=== PATIENT | male | born 1975 | race Caucasian/White ===

== ENCOUNTER 2016-10-02 07:27 | Inpatient (IN) | payer BC ==
[2016-10-02] VITALS (41 sets, daily range): BP systolic 125–271; BP diastolic 53–133; PULSE 62–114; RESP 5–43; TEMP 98.5–99.1; O2SAT 80–99
[~2016-10-02] VITALS: Ht 175.3 cm; Wt 114.4 kg
[~2016-10-02 07:27] MED LIST: ALPR0.5T3 PO; ASPI-110 PO; BACL10TA PO; BACT800T5 PO; CLON0.1T PO; FURO20TA PO; FURO40TA PO; HYDR50TA15 PO; LEVE500T8 PO; LEVEMIR SQ; METO5TAB3 PO; NOVOLOGSS SQ; ONDA4TAB6 PO; PANT40TA3 PO; ULTR50TA5 PO; ZOFR4TAB PO
--- NOTE | 2016-10-02 07:39 | PD ---
HPI Chief Complaint: Neuro Symptoms/ Deficits Time Seen by Provider: 07:32 Travel History International Travel<30 days: No Contact w/Intl Traveler<30days: No History of Present Illness HPI Patient is a 40-year-old male with history of chronic kidney disease diabetes presents to emergency department with left-sided facial tingling as well as left arm tingling. Patient states that he had the onset of the worst headache of his life last night and this morning he awoke with these numbness and tingling symptoms. Denies any focalized weakness denies any visual difficulty. He states this happened to him one time in the past and he was admitted to the hospital but with no definitive diagnosis. Notably hypertensive on arrival states he still hurting in his head. He's had an episode of nausea and nonbilious nonbloody emesis last night. No chest pain no shortness of breath. States symptoms are severe. PFSH Past Medical History Anemia: Yes Arthritis: No Asthma: No Autoimmune Disease: No Blood Disorders: No Anxiety: Yes Depression: Yes Heart Rhythm Problems: No Cancer: No Cardiac Catheterization: No Cardiovascular Problems: Yes High Cholesterol: No Chemotherapy: No Chest Pain: Yes Congestive Heart Failure: No Diabetes: Yes (INSULIN) Diminished Hearing: No Endocrine: Yes GERD: Yes Genitourinary: No Headaches: Yes Hypertension: Yes Implanted Vascular Access Dvce: No Musculoskeletal: No Neurologic: Yes (neuropathy) Psychiatric: No Reproductive: No Respiratory: No Immunizations Current: Yes Myocardial Infarction: No Pancreatitis: Yes Radiation Therapy: No Renal Failure: Yes Seizures: Yes (QUESTIONABLE ) Sickle Cell Disease: No Sleep Apnea: No Past Surgical History Abdominal Surgery: No AICD: No Appendectomy: Yes (2004) Cardiac Surgery: No Coronary Artery Bypass Graft: No Ear Surgery: No Endocrine Surgery: No Eye Surgery: Yes ( 2011 at [facility] right eye) Genitourinary Surgery: No Gynecologic Surgery: No Neurologic Surgery: No Oral Surgery: No Thoracic Surgery: No Tonsillectomy: Yes Other Surgery: Yes (TOSILECTOMY 1997) Social History Alcohol Use: No Tobacco Use: No (QUIT 2013- pack a week cigs) Substance Use: No Allergies-Medications (Allergen,Severity, Reaction): Coded Allergies: No Known Allergies (Verified , 10/02/16) Reported Meds & Prescriptions Reported Meds & Active Scripts Active Reported Hydralazine (Hydralazine HCl) 100 Mg Tab 50 Mg PO TID Take with meals Losartan (Losartan Potassium) 50 Mg Tab 50 Mg PO DAILY Levetiracetam 500 Mg Tab 1,000 Mg PO BID Baclofen 10 Mg Tab 10 Mg PO TID PRN Alprazolam 0.5 Mg Tab 0.5 Mg PO Q8H PRN Clonidine (Clonidine HCl) 0.1 Mg Tab 0.3 Mg PO BID Furosemide 40 Mg Tab 40 Mg PO DAILY Furosemide 20 Mg Tab 20 Mg PO HS Pantoprazole (Pantoprazole Sodium) 40 Mg Tab 40 Mg PO DAILY Ondansetron HCl 4 Mg Tab 4 Mg PO Q6HR PRN Metolazone 5 Mg Tab 5 Mg PO DAILY Levemir Inj (Insulin Detemir) 1,000 unit/ 10 ML Vial 90 Units SQ HS Do not mix with any other Insulin. Aspirin 81 (Aspirin) 81 Mg Tabdr 81 Mg PO DAILY Novolog Inj (Insulin Aspart) 100 Unit/Ml Inj 12 Units SQ HS Novolog Inj (Insulin Aspart) 100 Unit/Ml Inj 10 Units SQ DAILY AFTER MEALS Review of Systems Except as stated in HPI: all other systems reviewed are Neg Physical Exam Narrative GENERAL: Well-developed well-nourished no apparent distress SKIN: Focused skin assessment warm/dry. HEAD: Atraumatic. Normocephalic. EYES: Pupils equal and round and reactive to light. No scleral icterus. No injection or drainage. ENT: No nasal bleeding or discharge. Mucous membranes pink and moist. NECK: Trachea midline. No JVD. CARDIOVASCULAR: Regular rate and rhythm. No murmur appreciated. RESPIRATORY: No accessory muscle use. Clear to auscultation. Breath sounds equal bilaterally. GASTROINTESTINAL: Abdomen soft, non-tender, nondistended. Hepatic and splenic margins not palpable. MUSCULOSKELETAL: No obvious deformities. No clubbing. No cyanosis. No edema. NEUROLOGICAL: Awake alert and oriented, keenly responsive, cranial nerves II through XII are grossly intact and nonfocal, 5 out of 5 strength in all 4 extremity's, no pronator drift in upper tremors, no leg drift, cerebellar testing is negative. PSYCHIATRIC: Appropriate mood and affect; insight and judgment normal. Data Data Last Documented VS Vital Signs Date Time Temp Pulse Resp B/P Pulse Ox O2 Delivery O2 Flow Rate FiO2 10/02/16 08:33 68 16 234/121 98 Room Air 10/02/16 07:[address] Brain W/O Iv Contrast(Rout) (10/02/16 ) Ckmb (Isoenzyme) Profile (10/02/16 07:38) Complete Blood Count With Diff (10/02/16 07:38) Comprehensive Metabolic Panel (10/02/16 07:38) Magnesium (Mg) (10/02/16 07:38) Prothrombin Time / Inr (Pt) (10/02/16 07:38) Act Partial Throm Time (Ptt) (10/02/16 07:38) Troponin I (10/02/16 07:38) Chest, Single Ap (10/02/16 07:38) Ecg Monitoring (10/02/16 07:38) Iv Access Insert/Monitor (10/02/16 07:38) Oximetry (10/02/16 07:38) Oxygen Administration (10/02/16 07:38) Sodium Chloride 0.9% Flush (Ns Flush) (10/02/16 07:45) Diphenhydramine Inj (Benadryl Inj) (10/02/16 07:45) Prochlorperazine Inj (Compazine Inj) (10/02/16 07:45) CKMB (10/02/16 07:45) CKMB% (10/02/16 07:45) Electrocardiogram (10/02/16 ) Nicardipine Inj (Cardene Inj) (10/02/16 08:45) Admit Order (Ed Use Only) (10/02/16 ) Labs Laboratory Tests Test 10/02/16 07:45 White Blood Count 6.7 TH/MM3 Red Blood Count 4.83 MIL/MM3 Hemoglobin 14.1 GM/DL Hematocrit 41.7 % Mean Corpuscular Volume 86.2 FL Mean Corpuscular Hemoglobin 29.1 PG Mean Corpuscular Hemoglobin 33.7 % Concent Red Cell Distribution Width 11.8 % Platelet Count 181 TH/MM3 Mean Platelet Volume 9.3 FL Neutrophils (%) (Auto) 75.8 % Lymphocytes (%) (Auto) 15.6 % Monocytes (%) (Auto) 6.6 % Eosinophils (%) (Auto) 1.3 % Basophils (%) (Auto) 0.7 % Neutrophils # (Auto) 5.2 TH/MM3 Lymphocytes # (Auto) 1.0 TH/MM3 Monocytes # (Auto) 0.4 TH/MM3 Eosinophils # (Auto) 0.1 TH/MM3 Basophils # (Auto) 0.0 TH/MM3 CBC Comment DIFF FINAL Differential Comment Prothrombin Time 10.2 SEC Prothromb Time International 0.9 RATIO Ratio Activated Partial 24.9 SEC Thromboplast Time Sodium Level 146 MEQ/L Potassium Level 3.6 MEQ/L Chloride Level 109 MEQ/L Carbon Dioxide Level 28.9 MEQ/L Anion Gap 8 MEQ/L Blood Urea Nitrogen 33 MG/DL Creatinine 2.60 MG/DL Estimat Glomerular Filtration 27 ML/MIN Rate Random Glucose 97 MG/DL Calcium Level 8.4 MG/DL Magnesium Level 1.8 MG/DL Total Bilirubin 0.5 MG/DL Aspartate Amino Transf 18 U/L (AST/SGOT) Alanine Aminotransferase 30 U/L (ALT/SGPT) Alkaline Phosphatase 69 U/L Total Creatine Kinase 303 U/L Creatine Kinase MB 10.0 NG/ML Troponin I 0.02 NG/ML Total Protein 6.4 GM/DL Albumin 2.8 GM/DL [facility] Medical Decision Making Medical Screen Exam Complete: Yes Emergency Medical Condition: Yes Interpretation(s) EKG shows normal sinus rhythm with normal axis and normal R-wave progression. Borderline LVH. No concerning ST segment changes, intervals within normal limits. This is borderline EKG. Differential Diagnosis TIA, hypertensive emergency, anxiety, electro-light abnormality, Narrative Course Patient roomed emergency department, initially blood pressure is 271/126 with a map of 174, after Benadryl and Compazine was given his map is come down 167. His headache is now resolved. A CT head was obtained which shows no acute abnormality. TIA does remain on the differential diagnosis as to his hypertensive encephalopathy versus hypertensive emergency. Patient was placed on a Cardene drip for go blood pressure proximate 180/100 which be about a 20% reduction in his map. Patient's labs are reassuring as far as his troponin is negative. His creatinine is 2.6 which appears to be about his baseline. Elect lites within normal limits. Chest x-ray was negative. Patient was discussed with Dr. Rain who agrees for observation status and MRI. Patient was discussed with Dr. Hernandez for admission and patient will go to the ICU on Cardene drip. Critical Care Narrative Aggregate critical care time was 35 minutes. Time to perform other separately billable procedures was not included in the critical care time. My time did not include minutes spent treating any other patients simultaneously or on activities that did not directly contribute to the patient's treatment. The services I provided to this patient were to treat and/or prevent clinically significant deterioration that could result in: , disability, organ failure, permanent neurologic dysfunction. I provided critical care services requiring my management, as noted below: Chart data review, documentation time, medication orders and management, vital sign assessments/reviewing monitor data, ordering and reviewing lab tests, ordering and interpreting/reviewing x-rays and diagnostic studies, care of the patient and discussion of the patient with the admitting physicians. Diagnosis Primary Impression: Hypertensive emergency Additional Impression: TIA (transient ischemic attack) Admitting Information Admitting Physician Requests: Admit Condition: Stable Adilson Glass MD Oct 02, 2016 07:39
[2016-10-02] MEDS ORDERED: PROCHLORPERAZINE INJ 10 MG/2 ML VIAL IV PUSH ONE (07:45)
[2016-10-02] MEDS ORDERED: diphenhydrAMINE HCL 50 MG/ML VIAL IV PUSH ONE (07:45)
[2016-10-02] MEDS ORDERED: SODIUM CHLORIDE 0.9% FLUSH 10 ML FLUSH IVF PRN (07:45)
[2016-10-02] MEDS ORDERED: LOSA50TA PO (07:52)
[2016-10-02] MEDS ORDERED: HYDR-3801 PO (07:52)
[2016-10-02 07:57] LABS: AUTOMATED NEUTROPHIL # 5.2 TH/MM3 (1.8-7.7); BASOPHIL % 0.7 % (0.0-2.0); EOSINOPHIL # 0.1 TH/MM3 (0-0.4); EOSINOPHIL % 1.3 % (0.0-4.0); HEMATOCRIT 41.7 % (39.0-51.0); HEMO FLAGS DIFF FINAL; LYMPH % 15.6 % (9.0-44.0); MEAN CELL VOLUME 86.2 FL (80.0-100.0); MEAN CORPUSCULAR HEMOGLOBIN 29.1 PG (27.0-34.0); MEAN CORPUSCULAR HGB CONC 33.7 % (32.0-36.0); MONO % 6.6 % (0.0-8.0); NEUT % 75.8 % (16.0-70.0); PLATELET COUNT 181 TH/MM3 (150-450); RED BLOOD COUNT 4.83 MIL/MM3 (4.50-5.90); RED CELL DISTRIBUTION WIDTH 11.8 % (11.6-17.2); WHITE BLOOD COUNT 6.7 TH/MM3 (4.0-11.0)
--- NOTE | 2016-10-02 08:04 | RADRPT ---
EXAM DATE/TIME: 10/02/2016 07:42 [facility] COMPARISON: No previous studies available for comparison. INDICATIONS : Severe headache and left extremity weakness. RADIATION DOSE: 67.69 CTDIvol (mGy) MEDICAL HISTORY : Hypertension. Gastroesophageal reflux disease. Pancreatitis.Renal failure. Diabetes. SURGICAL HISTORY : Tonsillectomy. Appendectomy. ENCOUNTER: Initial ACUITY: 1 day PAIN SCALE: 10/10 LOCATION: cranial TECHNIQUE: Multiple contiguous axial images were obtained of the head. Using automated exposure control and adj ustment of the mA and/or kV according to patient size, radiation dose was kept as low as reasonably a chievable to obtain optimal diagnostic quality images. DICOM format image data is available electro nically for review and comparison. FINDINGS: CEREBRUM: The ventricles are normal for age. No evidence of midline shift, mass lesion, hemorrhage or acute in farction. No extra-axial fluid collections are seen. POSTERIOR FOSSA: The cerebellum and brainstem are intact. The 4th ventricle is midline. The cerebellopontine angle i s unremarkable. EXTRACRANIAL: The visualized portion of the orbits is intact. SKULL: The calvaria is intact. No evidence of skull fracture. CONCLUSION: 1. No acute intracranial abnormality. Giorgi Brito MD on October 02, 2016 at 7:56 Board Certified Radiologist. This report was verified electronically.
[2016-10-02 08:05] LABS: CHLORIDE 109 MEQ/L (98-107); POTASSIUM 3.6 MEQ/L (3.5-5.1); SODIUM (NA) 146 MEQ/L (136-145)
[2016-10-02 08:09] LABS: ANION GAP 8 MEQ/L (5-15); APTT (PATIENT) 24.9 SEC (24.3-30.1); BICARBONATE 28.9 MEQ/L (21.0-32.0); BLOOD UREA NITROGEN 33 MG/DL (7-18); INTERNATIONAL NORMALIZED RATIO 0.9 RATIO; MAGNESIUM 1.8 MG/DL (1.5-2.5); PROTHROMBIN TIME - PATIENT 10.2 SEC (9.8-11.6)
[2016-10-02 08:12] LABS: ALT (GPT) 30 U/L (12-78); AST (GOT) 18 U/L (15-37); GLOMERULAR FILTRATION RATE 27 ML/MIN (>89)
[2016-10-02 08:13] LABS: TOTAL BILIRUBIN ADULT 0.5 MG/DL (0.2-1.0)
[2016-10-02 08:14] LABS: CREATINE KINASE 303 U/L (39-308)
--- NOTE | 2016-10-02 08:14 | RADRPT ---
EXAM DATE/TIME: 10/02/2016 07:57 [facility] COMPARISON: CHEST SINGLE AP, April 23, 2014, 15:28. INDICATIONS : Chest Pain MEDICAL HISTORY : Hypertension. Gastroesophageal reflux disease. Pancreatitis.Renal failure.Diabetes. SURGICAL HISTORY : Tonsillectomy. Appendectomy ENCOUNTER: Initial ACUITY: 1 day PAIN SCORE: 6/10 LOCATION: Bilateral chest FINDINGS: Portable AP view of the chest demonstrates a normal-sized cardiac silhouette. No effusion, consolidat ion, or pneumothorax is visualized. The bones and soft tissues demonstrate no acute abnormality. Lung s are mildly underinflated. CONCLUSION: No acute cardiopulmonary abnormality is identified. Nawaf Rausch MD on October 02, 2016 at 8:12 Board Certified Radiologist. This report was verified electronically.
[2016-10-02 08:15] LABS: ALKALINE PHOSPHATASE 69 U/L (45-117)
[2016-10-02] MEDS: niCARdipine INJ 25 MG in SODIUM CHLOR 0.9% 250 ML INJ 250 ML IV SCH ×3 (09:05→18:08)
[2016-10-02] MEDS ORDERED: ACETAMINOPHEN 325 MG TAB PO PRN ×2 (09:15)
[2016-10-02] MEDS ORDERED: SODIUM CHLORIDE 0.9% FLUSH 10 ML FLUSH IV FLUSH PRN (09:15)
[2016-10-02] MEDS ORDERED: TEMAZEPAM 15 MG CAP PO PRN (09:15)
[2016-10-02] MEDS ORDERED: NALOXONE HCL 0.4 MG/ML AMP IV PRN (09:15)
[2016-10-02] MEDS ORDERED: ACETAMINOPHEN/HYDROcodone 325 MG/7.5 MG TAB PO PRN (09:15)
[2016-10-02] MEDS ORDERED: ACETAMINOPHEN/HYDROcodone 325 MG/5 MG TAB PO PRN (09:15)
[2016-10-02] MEDS ORDERED: MAGNESIUM HYDROXIDE SUSP 30 ML CUP PO PRN (09:15)
[2016-10-02] MEDS ORDERED: DEXTROSE 50% IN WATER 50 ML VIAL(D50) IV PRN (09:15)
[2016-10-02] MEDS ORDERED: GLUCAGON 1 MG/ML VIAL OTHER PRN (09:15)
[2016-10-02] MEDS ORDERED: RESP: ALBUTEROL 2.5 MG/IPRATROPIUM 0.5 MG NEB (PRN) NEB (09:15)
[2016-10-02] MEDS ORDERED: ONDANSETRON HCL 4 MG/2 ML VIAL IVP PRN (09:15)
[2016-10-02] MEDS ORDERED: ASPIRIN 81 MG CHEW TAB CHEW ONE (09:30)
--- NOTE | 2016-10-02 09:55 | RADRPT ---
EXAM DATE/TIME: 10/02/2016 09:25 [facility] COMPARISON: CT ABDOMEN W/O CONTRAST, February 28, 2016, 23:22. INDICATIONS : Cerebrovascular accident. MEDICAL HISTORY : Hypertension. Pancreatitis. Peripheral neuropathy. Seizures. Syncope. Chest pain. Stage IV renal di sease and failure. GERD. Diabetes. PTSD. Depression. Anxiety. SURGICAL HISTORY : Tonsillectomy. Appendectomy. Right eye. ENCOUNTER: Initial ACUITY: 1 day PAIN SCORE: 0/10 LOCATION: Bilateral neck PEAK SYSTOLIC VELOCITIES (cm/sec): ICA/CCA RATIO: Right: 1.0 Left: 0.8 ICA: Right: 101 Left: 103 CCA: Right: 104 Left: 134 ECA: Right: 150 Left: 124 VERTEBRAL: Right: 67 antegrade Left: 81 antegrade Elevated flow velocities and ICA/CCA ratios have been found to correlate with increased degrees of vessel stenosis, calculated as percentage of diameter relative to a normal segment of distal ICA/CCA FINDINGS: RIGHT CAROTID: No significant stenosis is visualized. The waveforms are within normal limits. LEFT CAROTID: No significant stenosis is visualized. The waveforms are within normal limits. VERTEBRAL ARTERIES: Antegrade flow is seen in both vertebral arteries. MISCELLANEOUS: None. CONCLUSION: 1. No significant flow-limiting stenosis. 2. Antegrade bilateral vertebral artery flow. Giorgi Brito MD on October 02, 2016 at 9:46 Board Certified Radiologist. This report was verified electronically.
[2016-10-02 10:12] LABS: AMPHETAMINE, URINE NEG (NEG)
[2016-10-02 10:13] LABS: BARBITURATES, URINE NEG (NEG); COCAINE, URINE NEG (NEG)
--- NOTE | 2016-10-02 10:50 | HHI.HP ---
[facility] Charlotte Rosen MD Admission Diagnosis Hypertensive Emergency, TIA Diagnoses: (1) Hypertensive urgency, malignant (2) TIA (transient ischemic attack) (3) Chronic renal insufficiency (4) Stage III chronic kidney disease Chief Complaint: Left facial and arm tingling and weakness Travel History International Travel<30 Days: No Contact w/Intl Traveler <30 Da: No Traveled to Known Affected Are: No History of Present Illness 20 year-old male with a history of diabetes type 2, chronic kidney disease stage III presented to the ED for evaluation of left facial and left upper extremity weakness, tingling and numbness along with worsening headaches since patient workup this morning from sleep. He also reported one episode of emesis. There was no slurring of the speech per patient's girlfriend however the speech was instead slower when spoken to. Patient reported that around 12 PM on 10/01/16 he had severe headaches without any aura or photophobia. He checked his blood pressure in the afternoon and got as a result error from the his BP however did not seek any medical attention. He currently denies any chest pain or GI bleed. Initial BP in the ED was 271/126 Review of Systems Except as stated in HPI: all other systems reviewed are Neg Past Family Social History Past Medical History Anemia: Yes Anxiety: Yes Depression: Yes Diabetes: Yes (INSULIN) GERD: Yes Headaches: Yes Hypertension: Yes Neurologic: Yes (neuropathy) Pancreatitis: Yes Chronic kidney disease stage III Seizures: Yes (QUESTIONABLE ) Past Surgical History Appendectomy: Yes (2004) Eye Surgery: Yes ( 2011 at [facility] right eye) Tonsillectomy: Yes Reported Medications Hydralazine (Hydralazine HCl) 100 Mg Tab 50 Mg PO TID Take with meals Losartan (Losartan Potassium) 50 Mg Tab 50 Mg PO DAILY Levetiracetam 500 Mg Tab 1,000 Mg PO BID Baclofen 10 Mg Tab 10 Mg PO TID PRN Alprazolam 0.5 Mg Tab 0.5 Mg PO Q8H PRN Clonidine (Clonidine HCl) 0.1 Mg Tab 0.3 Mg PO BID Furosemide 40 Mg Tab 40 Mg PO DAILY Furosemide 20 Mg Tab 20 Mg PO HS Pantoprazole (Pantoprazole Sodium) 40 Mg Tab 40 Mg PO DAILY Ondansetron HCl 4 Mg Tab 4 Mg PO Q6HR PRN Metolazone 5 Mg Tab 5 Mg PO DAILY Levemir Inj (Insulin Detemir) 1,000 unit/ 10 ML Vial 90 Units SQ HS Do not mix with any other Insulin. Aspirin 81 (Aspirin) 81 Mg Tabdr 81 Mg PO DAILY Novolog Inj (Insulin Aspart) 100 Unit/Ml Inj 12 Units SQ HS Novolog Inj (Insulin Aspart) 100 Unit/Ml Inj 10 Units SQ DAILY AFTER MEALS Allergies: Coded Allergies: No Known Allergies (Verified , 10/02/16) Family History Mother had TIAs Father With a history of hypertension, diabetes type 2 Social History Alcohol Use: No Tobacco Use: No (QUIT 2013- pack a week cigs) Substance Use: No Physical Exam Vital Signs Vital Signs Date Time Temp Pulse Resp B/P Pulse Ox O2 Delivery O2 Flow Rate FiO2 10/02/16 09:38 80 16 196/78 98 Room Air 10/02/16 09:20 74 18 213/107 98 Room Air 10/02/16 08:33 68 16 234/121 98 Room Air 10/02/16 08:11 72 16 235/133 99 Room Air 10/02/16 08:00 16 98 Room Air 10/02/16 08:00 98 Room Air 10/02/16 07:30 98.6 92 18 271/126 99 Physical Exam GENERAL: This is a well-nourished, well-developed patient, in no apparent distress. SKIN: No rashes, ecchymoses or lesions. Cool and dry. HEAD: Atraumatic. Normocephalic. No temporal or scalp tenderness. EYES: Pupils equal round and reactive. Extraocular motions intact. No scleral icterus. No injection or drainage. ENT: Nose without bleeding, purulent drainage or septal hematoma. Throat without erythema, tonsillar hypertrophy or exudate. Uvula midline. Airway patent. NECK: Trachea midline. No JVD or lymphadenopathy. Supple, nontender, no meningeal signs. CARDIOVASCULAR: Regular rate and rhythm without murmurs, gallops, or rubs. RESPIRATORY: Clear to auscultation. Breath sounds equal bilaterally. No wheezes , rales, or rhonchi. GASTROINTESTINAL: Abdomen soft, non-tender, nondistended. No hepato-splenomegaly , or palpable masses. No guarding. MUSCULOSKELETAL: Extremities without clubbing, cyanosis, or edema. No joint tenderness, effusion, or edema noted. No calf tenderness. Negative Homans sign bilaterally. NEUROLOGICAL: Awake and alert. Cranial nerves II through XII intact. Motor and sensory grossly within normal limits. Five out of 5 muscle strength in all muscle groups. Normal speech. Laboratory Laboratory Tests Test 10/02/16 10/02/16 07:45 09:55 White Blood Count 6.7 Red Blood Count 4.83 Hemoglobin 14.1 Hematocrit 41.7 Mean Corpuscular Volume 86.2 Mean Corpuscular Hemoglobin 29.1 Mean Corpuscular Hemoglobin 33.7 Concent Red Cell Distribution Width 11.8 Platelet Count 181 Mean Platelet Volume 9.3 Neutrophils (%) (Auto) 75.8 Lymphocytes (%) (Auto) 15.6 Monocytes (%) (Auto) 6.6 Eosinophils (%) (Auto) 1.3 Basophils (%) (Auto) 0.7 Neutrophils # (Auto) 5.2 Lymphocytes # (Auto) 1.0 Monocytes # (Auto) 0.4 Eosinophils # (Auto) 0.1 Basophils # (Auto) 0.0 CBC Comment DIFF FINAL Differential Comment Prothrombin Time 10.2 Prothromb Time International 0.9 Ratio Activated Partial 24.9 Thromboplast Time Sodium Level 146 Potassium Level 3.6 Chloride Level 109 Carbon Dioxide Level 28.9 Anion Gap 8 Blood Urea Nitrogen 33 Creatinine 2.60 Estimat Glomerular Filtration 27 Rate Random Glucose 97 Calcium Level 8.4 Magnesium Level 1.8 Total Bilirubin 0.5 Aspartate Amino Transf 18 (AST/SGOT) Alanine Aminotransferase 30 (ALT/SGPT) Alkaline Phosphatase 69 Total Creatine Kinase 303 Creatine Kinase MB 10.0 Troponin I 0.02 Total Protein 6.4 Albumin 2.8 Urine Opiates Screen NEG Urine Barbiturates Screen NEG Urine Amphetamines Screen NEG Urine Benzodiazepines Screen POS Urine Cocaine Screen NEG Urine Cannabinoids Screen NEG Result Diagram: 10/02/1645 10/02/16744 Assessment and Plan Problem List: (1) Hypertensive urgency, malignant ICD Code: I16.0 Status: Resolved (2) TIA (transient ischemic attack) ICD Code: G45.9 Status: Resolved (3) Stage III chronic kidney disease ICD Code: N18.3 Status: Acute (4) HTN (hypertension) ICD Code: I10 Status: Acute (5) Type II diabetes mellitus with complication ICD Code: E11.8 Status: Acute Assessment and Plan 40-year-old man with Hypertensive urgency, malignant Start Cardene drip ICU admission TIA rule out per stroke protocol -Continue with aspirin -Start statin therapy -NIHSS, Neuro checks, Monitor on telemetry -Check lipid profile and HgbA1c -Check carotid U/S -Head CT 10/02/16 noted and review by me without any acute finding -Check Brain MRI/MRA -Check echocardiogram -Neurology consultation pending Diabetes type 2 Start insulin sliding scale and hold all outpatient regimens Chronic kidney stage III Currently patient had baseline Monitor BUN/creatinine Other chronic medical conditions Resume outpatient medications DVT prophylaxis Bilateral SCDs Total critical care 35 minutes Code Status Full code Discussed Condition With Patient, girlfriend, ED physician Physician Certification 2 Midnight Certification Type: Admission for Inpatient Services Order for Inpatient Services The services are ordered in accordance with Medicare regulations or non- Medicare payer requirements, as applicable. In the case of services not specified as inpatient-only, they are appropriately provided as inpatient services in accordance with the 2-midnight benchmark. Estimated LOS (days): 2 days is the estimated time the patient will need to remain in the hospital, assuming treatment plan goals are met and no additional complications. Post-Hospital Plan: Not yet determined Norman Hernandez MD Oct 02, 2016 10:50
[2016-10-02] MEDS ORDERED: ALPRAZolam 0.5 MG TAB PO PRN (11:00)
[2016-10-02] MEDS: INSULIN ASPART SUPPLEMENTAL SCALE SQ SCH ×3 (11:00→21:19)
--- NOTE | 2016-10-02 11:55 | ECHRPT ---
Indication: cva/tia CONCLUSIONS The left ventricular systolic function is hyperdynamic with an estimated ejection fraction in the ra nge of 65- 70%. Moderate concentric left ventricular hypertrophy. The left atrial size is mildly dilated. Mild mitral valve regurgitation. There is mild tricuspid valve regurgitation. BP: / HR: Rhythm: MEASUREMENTS (Male / Female) Normal Values Technical Quality:Good 2D ECHO LV Diastolic Diameter PLAX 5.1 cm 4.2 - 5.9 / 3.9 - 5.3 cm LV Systolic Diameter PLAX 3.3 cm IVS Diastolic Thickness 1.8 cm 0.6 - 1.0 / 0.6 - 0.9 cm LVPW Diastolic Thickness 1.7 cm 0.6 - 1.0 / 0.6 - 0.9 cm LV Relative Wall Thickness 0.7 RV Internal Dim ED PLAX 3.4 cm LVOT Diameter 1.8 cm M-MODE Aortic Root Diameter MM 3.6 cm LA Systolic Diameter MM 4.6 cm LA Ao Ratio MM 1.3 AV Cusp Separation MM 2.3 cm DOPPLER AV Peak Velocity 251.0 cm/s AV Peak Gradient 25.2 mmHg AV Mean Gradient 14.0 mmHg AV Velocity Time Integral 46.9 cm LVOT Peak Velocity 211.0 cm/s LVOT Peak Gradient 17.8 mmHg LVOT Velocity Time Integral 39.4 cm AV Area Cont Eq vti 2.1 cm AV Area Cont Eq pk 2.1 cm Mitral E Point Velocity 87.4 cm/s Mitral A Point Velocity 104.0 cm/s Mitral E to A Ratio 0.8 LV E' Lateral Velocity 7.9 cm/s Mitral E to LV E' Lateral Ratio 11.1 LV E' Septal Velocity 6.2 cm/s Mitral E to LV E' Septal Ratio 14.0 TR Peak Velocity 240.0 cm/s TR Peak Gradient 23.0 mmHg FINDINGS LEFT VENTRICLE Normal left ventricular size. Moderate concentric left ventricular hypertrophy. The left ventricular systolic function is hyperdynamic with an estimated ejection fraction in the ra nge of 65- 70%. RIGHT VENTRICLE The right ventricular systoilc function is normal. LEFT ATRIUM The left atrial size is mildly dilated. RIGHT ATRIUM The right atrial size is normal. ATRIAL SEPTUM Normal atrial septal thickness without atrial level shunting by limited color doppler interrogation. MITRAL VALVE Structurally normal mitral valve. Mild mitral valve regurgitation. AORTIC VALVE Grossly normal. Aortic valve sclerosis is present. No aortic valve regurgitation. No aortic valve stenosis. TRICUSPID VALVE Structurally normal tricuspid valve. There is mild tricuspid valve regurgitation. RVSP 33 PULMONARY VALVE The pulmonary valve is not well visualized. VESSELS The inferior vena cava (IVC) is normal in size. Lucio Montenegro DO (Electronically Signed) Final Date:02 October 2016 11:54
[2016-10-02] MEDS ORDERED: LORazepam 2 MG/ML VIAL IV ONE (12:30)
[2016-10-02] MEDS ORDERED: LORazepam 2 MG/ML VIAL IV PRN (13:30)
--- NOTE | 2016-10-02 13:56 | RADRPT ---
EXAM DATE/TIME: 10/02/2016 12:37 [facility] COMPARISON: No previous studies available for comparison. INDICATIONS : Stroke. Left sided numbness. MEDICAL HISTORY : Venous insufficiency. Hypertension. Seizures. SURGICAL HISTORY : Appendectomy. Tonsillectomy. Right eye sx. ENCOUNTER: Initial ACUITY: 1 day PAIN SCORE: 3/10 LOCATION: Left cranial Please note a normal MRA of the brain does not entirely exclude the possibility of a small aneurysm, nor the possibility of distal intracranial vessel disease. TECHNIQUE: 3D time of flight MRA was performed. Source images, multiplanar STS MIP, and 3D volume MIP reconstru ctions were reviewed. FINDINGS: There is excellent visualization of the major intracranial arteries out to the second-order branch ve ssels. There is no evidence for aneurysm, vessel truncation or stenosis, and no evidence for vascula r malformation. The left posterior cerebral artery arises predominantly from the anterior circulatio n. CONCLUSION: Negative MRA of the brain. Kurtis Villavicencio MD FACR on October 02, 2016 at 13:46 Board Certified Radiologist. This report was verified electronically.
--- NOTE | 2016-10-02 14:02 | RADRPT ---
EXAM DATE/TIME: 10/02/2016 12:37 [facility] COMPARISON: No previous studies available for comparison. INDICATIONS : CVA. Left sided numbness. MEDICAL HISTORY : Venous insufficiency. Hypertension. Seizures. SURGICAL HISTORY : Tonsillectomy. Appendectomy. ENCOUNTER: Initial ACUITY: 1 day PAIN SCORE: 3/10 LOCATION: Left cranial TECHNIQUE: Multiplanar, multisequence MRI of the brain was performed without contrast. FINDINGS: There are scattered periventricular white matter changes evident in a nonspecific fashion. There is no parenchymal hemorrhage, acute infarction or mass lesion. Posterior fossa is unremarkable. Orbits and paranasal sinuses appear normal. CONCLUSION: Minimal periventricular white matter changes, otherwise negative. Kurtis Villavicencio MD FACR on October 02, 2016 at 13:55 Board Certified Radiologist. This report was verified electronically.
[2016-10-02] MEDS ORDERED: CHLORHEXIDINE GLUCONATE 2 % 1 PACK (2 CLOTHS)(extra cloths) TOPICAL PRN (14:15)
[2016-10-02 15:32] LABS: HEMOGLOBIN A1a 0.9 %; HEMOGLOBIN A1b 0.7 %; HEMOGLOBIN Ao 83.1 %; HEMOGLOBIN F 1.2 %; HEMOGLOBIN LA1C 1.9 %; HEMOGLOBIN P3 4.9 %
[2016-10-02] MEDS: SODIUM CHLORIDE 0.9% FLUSH 10 ML FLUSH IV FLUSH SCH (21:18)
[2016-10-02] MEDS: levETIRAcetam 500 MG TAB PO SCH (21:18)
[2016-10-03] VITALS (20 sets, daily range): BP systolic 150–200; BP diastolic 62–100; PULSE 66–96; RESP 5–37; TEMP 97.9–98.7; O2SAT 91–95
[2016-10-03] MEDS: niCARdipine INJ 25 MG in SODIUM CHLOR 0.9% 250 ML INJ 250 ML IV SCH ×2 (00:06→04:25)
[2016-10-03] MEDS ORDERED: CHLORHEXIDINE GLUCONATE 2 % 1 PACK (2 CLOTHS)(taper/protocol) TOPICAL SCH (04:00)
[2016-10-03] MEDS: LABETALOL HCL 100 MG/20 ML VIAL IV PRN ×2 (04:25→09:13)
[2016-10-03 05:16] LABS: AUTOMATED NEUTROPHIL # 5.4 TH/MM3 (1.8-7.7); BASOPHIL # 0.1 TH/MM3 (0-0.2); EOSINOPHIL # 0.2 TH/MM3 (0-0.4); EOSINOPHIL % 2.7 % (0.0-4.0); HEMATOCRIT 40.3 % (39.0-51.0); HEMO FLAGS DIFF FINAL; LYMPH % 20.5 % (9.0-44.0); LYMPHOCYTE # 1.6 TH/MM3 (1.0-4.8); MEAN CELL VOLUME 86.6 FL (80.0-100.0); MEAN CORPUSCULAR HEMOGLOBIN 29.7 PG (27.0-34.0); MEAN CORPUSCULAR HGB CONC 34.3 % (32.0-36.0); MONO % 9.1 % (0.0-8.0); NEUT % 66.7 % (16.0-70.0); PLATELET COUNT 188 TH/MM3 (150-450); RED BLOOD COUNT 4.66 MIL/MM3 (4.50-5.90); RED CELL DISTRIBUTION WIDTH 11.9 % (11.6-17.2)
[2016-10-03 05:44] LABS: CHLORIDE 107 MEQ/L (98-107); POTASSIUM 3.4 MEQ/L (3.5-5.1); SODIUM (NA) 145 MEQ/L (136-145)
[2016-10-03 05:49] LABS: ANION GAP 11 MEQ/L (5-15); BICARBONATE 27.1 MEQ/L (21.0-32.0); BLOOD UREA NITROGEN 38 MG/DL (7-18)
[2016-10-03 05:52] LABS: ALT (GPT) 27 U/L (12-78); AST (GOT) 15 U/L (15-37); GLOMERULAR FILTRATION RATE 20 ML/MIN (>89)
[2016-10-03 05:53] LABS: TOTAL BILIRUBIN ADULT 0.5 MG/DL (0.2-1.0)
[2016-10-03 05:55] LABS: ALKALINE PHOSPHATASE 71 U/L (45-117)
[2016-10-03] MEDS: INSULIN ASPART SUPPLEMENTAL SCALE SQ SCH ×2 (07:00→13:17)
--- NOTE | 2016-10-03 07:42 | EKG ---
Date Performed: 10/02/2016 Time Performed: 07:35:15 PTAGE: 40 years EKG: Sinus rhythm NORMAL ECG INTERPRETATION BASED ON A DEFAULT AGE OF 39 YEARS PREVIOUS TRACING : 08/10/2014 09.40 DOCTOR: Angel Pitts Interpretating Date/Time 10/03/2016 07:41:12
[2016-10-03] MEDS ORDERED: FUROSEMIDE 40 MG TAB PO SCH (09:00)
[2016-10-03] MEDS ORDERED: ASPIRIN EC 81 MG TABEC PO SCH (09:00)
[2016-10-03] MEDS ORDERED: METOLAZONE 5 MG TAB PO SCH (09:00)
[2016-10-03] MEDS ORDERED: PANTOPRAZOLE SOD 40 MG DELAYED RELEASE TAB PO SCH (09:00)
[2016-10-03] MEDS ORDERED: cloNIDine HCL 0.1 MG TAB PO SCH (09:00)
[2016-10-03] MEDS ORDERED: LOSARTAN 50 MG TAB PO SCH (09:00)
[2016-10-03] MEDS ORDERED: ASPIRIN 325 MG TAB PO SCH (09:00)
[2016-10-03] MEDS: hydrALAZINE HCL 50 MG TAB PO SCH ×2 (09:14→13:20)
[2016-10-03] MEDS: levETIRAcetam 500 MG TAB PO SCH (09:14)
[2016-10-03] MEDS: SODIUM CHLORIDE 0.9% FLUSH 10 ML FLUSH IV FLUSH SCH (09:15)
[2016-10-03 10:18] LABS: HDL CHOLESTEROL 37.1 MG/DL (40.0-60.0); LDL CHOLESTEROL 136 MG/DL (0-99)
[2016-10-03] MEDS ORDERED: INSULIN ASPART SUPPLEMENTAL SCALE SQ SCH (11:00)
--- NOTE | 2016-10-03 13:51 | HHI.PR ---
Subjective Remarks Follow-up hypertensive emergency/urgency 10/03/16-patient seen and examined, SBP 150s, and denies any headaches or visual change. TIA/CVA ruled out with normal brain MRI. Denies any chest pain or shortness of breath. 2-D echo with EF 65-70% Objective Vitals Vital Signs Date Time Temp Pulse Resp B/P Pulse Ox O2 Delivery O2 Flow Rate FiO2 10/03/16 10:36 78 7 165/84 93 10/03/16 09:12 96 17 171/90 94 10/03/16 09:07 92 28 200/82 95 10/03/16 08:30 96 37 166/68 95 10/03/16 08:00 98.3 96 24 150/86 94 10/03/16 07:30 98.3 88 17 157/62 93 10/03/16 07:30 88 10/03/16 07:00 92 17 175/71 94 10/03/16 06:30 86 165/64 92 10/03/16 06:23 86 157/71 95 10/03/16 04:58 86 22 175/79 91 10/03/16 04:25 92 26 176/80 92 10/03/16 04:19 94 24 182/84 92 10/03/16 03:55 97.9 86 13 162/100 91 10/03/16 02:55 82 5 169/71 94 10/03/16 01:55 84 20 158/63 93 10/03/16 00:55 86 19 153/64 92 10/03/16 00:06 98.2 84 18 153/65 94 10/02/16 23:55 84 22 180/65 93 10/02/16 23:05 84 23 142/65 94 10/02/16 23:00 83 10/02/16 22:30 84 18 160/65 93 10/02/16 22:00 92 25 165/70 96 10/02/16 21:30 100 33 184/85 95 10/02/16 21:00 84 17 162/67 93 10/02/16 20:45 84 24 154/65 93 10/02/16 20:00 98.5 88 27 173/79 94 10/02/16 19:30 114 43 192/76 92 10/02/16 19:00 94 22 162/66 91 10/02/16 18:30 90 22 171/65 92 10/02/16 18:15 92 20 160/70 92 10/02/16 18:00 88 20 150/59 92 10/02/16 17:15 17 183/79 95 10/02/16 17:00 182/75 92 10/02/16 16:15 86 19 151/73 92 10/02/16 16:00 88 20 148/69 93 10/02/16 16:00 88 10/02/16 15:30 80 146/64 90 10/02/16 15:15 72 20 125/55 92 10/02/16 15:00 72 19 131/53 92 10/02/16 14:45 104 24 153/67 95 10/02/16 14:30 80 21 155/73 93 10/02/16 14:15 64 19 158/65 92 10/02/16 14:00 76 19 135/55 92 I/O 10/02/16 10/02/16 10/02/16 10/03/16 10/03/16 10/03/16 07:00 15:00 23:00 07:00 15:00 23:00 Intake Total 814 ml Output Total 250 ml 550 ml Balance -250 ml 264 ml Intake Oral 300 ml IV Total 514 ml Output Urine Total 250 ml 550 ml Result Diagram: 10/03/16 0435 10/03/16 0435 Imaging Last Impressions Chest X-Ray 10/02/16 0738 Signed Impressions: Service Date/Time: Sunday, October 02, 2016 07:57 - CONCLUSION: No acute cardiopulmonary abnormality is identified. Nawaf Rausch MD Head Magnetic Resonance Angiography 10/02/16 0000 Signed Impressions: Service Date/Time: Sunday, October 02, 2016 12:37 - CONCLUSION: Negative MRA of the brain. Kurtis Villavicencio MD FACR Head CT 10/02/16 0000 Signed Impressions: Service Date/Time: Sunday, October 02, 2016 07:42 - CONCLUSION: 1. No acute intracranial abnormality. Giorgi Brito MD Carotid Artery Ultrasound 10/02/16 0000 Signed Impressions: Service Date/Time: Sunday, October 02, 2016 09:25 - CONCLUSION: 1. No significant flow-limiting stenosis. 2. Antegrade bilateral vertebral artery flow. Giorgi Brito MD Brain MRI 10/02/16 0000 Signed Impressions: Service Date/Time: Sunday, October 02, 2016 12:37 - CONCLUSION: Minimal periventricular white matter changes, otherwise negative. Kurtis Villavicencio MD FACR Objective Remarks GENERAL: NAD SKIN: Warm and dry. HEAD: Normocephalic. EYES: No scleral icterus. No injection or drainage. NECK: Supple, trachea midline. No JVD or lymphadenopathy. CARDIOVASCULAR: Regular rate and rhythm without murmurs, gallops, or rubs. RESPIRATORY: Breath sounds equal bilaterally. No accessory muscle use. GASTROINTESTINAL: Abdomen soft, non-tender, nondistended. MUSCULOSKELETAL: No cyanosis, or edema. BACK: Nontender without obvious deformity. No CVA tenderness. Procedures none A/P Problem List: (1) Hypertensive urgency, malignant ICD Code: I16.0 Status: Resolved (2) TIA (transient ischemic attack) ICD Code: G45.9 Status: Resolved (3) Chronic renal insufficiency ICD Code: N18.9 Status: Chronic (4) Stage III chronic kidney disease ICD Code: N18.3 Status: Acute (5) Type II diabetes mellitus with complication ICD Code: E11.8 Status: Acute Assessment and Plan 40-year-old man with Hypertensive urgency, malignant-resolved wean off Cardene drip 2-D echo with EF 65-70% Hypertension Resume outpatient medications TIA rule out per stroke protocol-ruled out Neuro deficit were secondary to Hypertensive urgency -Continue with aspirin -Statin therapy -NIHSS, Neuro checks, Monitor on telemetry -LDL 136 and HgbA1c 7.3 -carotid U/S noted and review -Head CT 10/02/16 noted and review by me without any acute finding -Brain MRI/MRA dated and review without any acute finding -2D echocardiogram with EF 65-70% -Neurology appreciated Diabetes type 2 Continue insulin sliding scale and all outpatient regimens Chronic kidney stage III worsened since admission / Cardene drip Patient will follow outpatient with His [employer] next week Monitor BUN/creatinine Other chronic medical conditions Continue outpatient medications DVT prophylaxis Bilateral SCDs Patient's condition tremendously improved therefore he will be discharged home today Discharge Planning Discharge patient to home Condition on discharge: Improved ADA Diet as tolerated Ad Jyoti activity Rx written:none Follow-up with primary care physician in week Nephrology when necessary Norman Hernandez MD Oct 03, 2016 13:51
[2016-10-03] MEDS ORDERED: LIPI10TA PO (14:24)
--- NOTE | 2016-10-03 17:13 | MB ---
cc: CHACHA CREWS MD DATE OF CONSULTATION 10/03/16 REASON FOR CONSULTATION Headache/hypertension/left-sided tingling sensation. HISTORY OF PRESENT ILLNESS Mr. Claire is a 40-year-old male with past medical history of diabetes, chronic kidney disease stage III, hypertension who presented to the [facility] for evaluation of the worst headache of his life that woke him up from sleep and left face and upper extremity tingling sensation. He also complains of one episode of emesis. The patient denies blurred vision, double vision, slurred speech, however, his girlfriend reported that he was slower when spoken to. Upon arrival, the patient's blood pressure was 271/126. Head CT scan was negative for an acute intracranial abnormality. He was admitted in the intensive care unit for further workup. There is no reported similar episode in the past. Denies seizures or loss of consciousness. REVIEW OF SYSTEMS A 12-point review of systems is negative except for what is stated in the HPI. PAST MEDICAL HISTORY 1. Anxiety, 2. Anemia, 3. Depression, 4. Diabetes, 5. Headache, 6. Hypertension, 7. Pancreatitis 8. Questionable seizures. PAST SURGICAL HISTORY 1. Appendectomy 2. Eye surgery 3. Tonsillectomy MEDICATIONS 1. Hydralazine. 2. Losartan 3. Levetiracetam 4. Baclofen. 5. Alprazolam. 6. Clonidine 7. Furosemide 8. Pantoprazole 9. Ondansetron 10. Levemir insulin 11. Aspirin 81 mg 12. NovoLog insulin ALLERGIES No known allergies. FAMILY HISTORY Mother with history of TIAs, father with history of hypertension and diabetes. Mother has history of diabetes as well. SOCIAL HISTORY He denies alcohol or substance abuse and quit smoking 2013. PHYSICAL EXAMINATION GENERAL: Awake, alert and in no apparent distress. HEENT: Atraumatic, normocephalic. Intact hearing. Intact vision. NECK: No signs of meningeal irritation. Supple. Trachea in the midline. CARDIOVASCULAR: Regular rate and rhythm. No murmurs. RESPIRATORY: Clear to auscultation. No wheezes. GASTROINTESTINAL: Soft abdomen, nontender. MUSCULOSKELETAL: No clubbing, cyanosis or edema. Moves all extremities equally. NEUROLOGIC: Awake, alert, oriented to time, person and place. No dysarthria. No dysphasia. Cranial nerves II-XII are grossly intact. Motor examination 5/5 bilateral symmetrical. Normal tone. No abnormal movements. Sensation is intact bilateral and symmetrical, other than glove and stocking distribution of mildly diminished sensation to light touch. Reflexes 1+ bilateral symmetrical. Diminished ankle reflexes. Plantars are bilaterally downgoing. Cerebellar signs are intact. PSYCHIATRIC: Normal mood and behavior. Good judgment. LABORATORY FINDINGS White blood cells 8, hemoglobin 13.8, MCV 86.6. Sodium 145, potassium 3.4, BUN 38, creatinine 3.4, random glucose 189, Hemoglobin A1c 7.3, total protein 6.3, triglyceride 153, cholesterol 204, LDL 136, HDL 37.1. UDS is positive for benzos. INR 0.9. IMAGING STUDIES - Head CT scan with no acute intracranial abnormality. - Brain MRI revealed minimal periventricular white matter changes, otherwise, negative. - Head MRA revealed a negative study. Carotid ultrasound with no significant flow-limiting stenosis. Antegrade bilateral vertebral artery flow. DIAGNOSTIC IMPRESSION 1. TIA 2. Hypertensive urgency 3. Chronic kidney disease 4. Hypertension. 5. Diabetes mellitus. PLAN 1. Neuro checks 2. Examination is nonfocal and neurological investigations are unremarkable. 3. Increase aspirin to 162 mg 4. Tight control of blood pressure and blood sugar 5. DVT prophylaxis. Thank you for the opportunity to participate in the care of your patient. MD JUSTINE Anthony/ /11:40 AM /4:56 PM [facility]
[2016-10-03] MEDS ORDERED: INSULIN DETEMIR 100 UNITS/ML VIAL SQ SCH (21:00)
== END 2016-10-03 15:10 | disposition home or self-care (01) | DRG 304 ==
LOC: PHED 07:27 → PHEDA 09:08 → PHICU 10:10
PROVIDERS: ADMIT Hospitalist; ATTEND Hospitalist
DX: I16.0 Hypertensive urgency (principal); K85.90 Acute pancreatitis without necrosis or infection, unspecified; E11.22 Type 2 diabetes mellitus with diabetic chronic kidney disease; N18.3 Chronic kidney disease, stage 3 (moderate); I12.9 Hypertensive chronic kidney disease with stage 1 through stage 4 chronic kidney disease, or unspecified chronic kidney disease; K21.9 Gastro-esophageal reflux disease without esophagitis; Z79.4 Long term (current) use of insulin; D64.9 Anemia, unspecified; F41.8 Other specified anxiety disorders
CPT/HCPCS: 70450; 70544; 70551; 71010; 80053; 80061; 80307; 82550; 82552; 82948; 83036; 83735; 84484; 85025; 85610; 85730; 87641; 93005; 93306; 93880; J0780; J1200; J1815; J2060; J2405; J7050

== ENCOUNTER → 2017-03-07 | Day surgery (SDC) | payer BC ==
[~2017-03-07] MED LIST changes: -ASPI-110 PO; +ASPI1TAB57 PO; +ATROPINE SULFATE 1% OPHT SOLN 5 ML BTL ONE; -BACT800T5 PO; +DEXAMETHASONE SOD PHOS 4 MG/ML VIAL ONE; +DEXTROSE 50% IN WATER 50 ML SYRINGE ONE; +EPINEPHrine HCL (1:1000) 1 MG/ML VIAL ONE; +HYALURONIDASE/LIDOCAINE/BUPIVACAINE 5 ML SYR ONE; +HYDR-3801 PO; -HYDR50TA15 PO; +LACTATED RINGER'S 1000 ML INJ 1,000 ML ONE; +LIPI10TA PO; +LOSA50TA PO; +MIDAZOLAM HCL 2 MG/2 ML VIAL ONE; +NEOMYCIN/POLYMYXIN/DEXAMETHASONE OPTH OINT 3.5 GM TUBE ONE; -ONDA4TAB6 PO; +ONDANSETRON HCL 4 MG/2 ML VIAL IV PUSH ONE; +PHENYLEPHRINE HCL 2.5 % OPTH SOLN 15 ML BTL ONE; +PROPOFOL 200 MG/20 ML AMP IV ONE; +SODIUM CHLORIDE 0.9% INJ 10 ML ONE; +TETRACAINE 0.5% OPTH SOLN 4 ML BTL ONE; +TROPICAMIDE 1% OPHT SOLN 15 ML BTL ONE; -ULTR50TA5 PO; -ZOFR4TAB PO; +ceFAZolin INJ 1,000 MG VIAL ONE
--- NOTE | 2017-03-09 08:25 | MP ---
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 PROCEDURE Pars plana vitrectomy, membrane peeling, endolaser, gas fluid exchange, left side. ANESTHESIA Laryngeal mask anesthesia. SURGEON Hubert Priest MD COMPLICATIONS None. PROCEDURE IN DETAIL After informed consent was obtained, the patient was anesthetized with retrobulbar anesthesia in the preoperative area. He was then brought to the operating room, prepared and draped in the usual sterile fashion. A wire lid speculum was placed on the patient's right eye. 23-gauge vitrectomy cannulas were then placed in the lower temporal, supratemporal and superonasal quadrants 3-mm posterior to the corneoscleral limbus. Infusion cannula was placed lower temporally. Core vitrectomy was then performed. There were fibrovascular attachments throughout the posterior pole which were dissected free and the vitrectomies carried out as far as possible in the vitreous space. These membranes were then both delaminated and segmented and removed. After removal of all the membranes, endolaser was used to place panretinal photocoagulation. Careful indirect ophthalmoscopy with scleral depression was then performed. No peripheral breaks were noted. The three vitrectomy cannulas were then removed. Subconjunctival injections of dexamethasone and Ancef were placed, an atropine drop and Maxitrol ointment, patch and shield were then applied. The patient tolerated the procedure well. There were no complications. She awoke from general anesthesia in good condition. She will follow-up tomorrow in our [place] office. ADDENDUM The patient had a small retinal break just inferior to the disk and an air-fluid exchange was performed draining the subretinal fluid and an endolaser was additionally placed to this site. Gas was then used to fill the vitreous cavity. The three vitrectomy cannulas were then removed. Subconjunctival injections of dexamethasone and Ancef were placed. An atropine drop and Maxitrol ointment, patch and shield were then applied. The patient tolerated the procedure well. There were no complications. She will followup tomorrow in our [place] office. MD MARCIO Fowler/ /1:42 PM /8:10 AM
== END | disposition home or self-care (01) ==
LOC: ESDC 12:25
PROVIDERS: ATTEND Ophthalmology Retina Specialist
DX: E10.35 Type 1 diabetes mellitus with proliferative diabetic retinopathy (principal); Z79.4 Long term (current) use of insulin
CPT/HCPCS: 00145; 67113; 82948; J0171; J0690; J1100; J2250; J2405; J3010; J7120

== ENCOUNTER 2017-08-04 19:54 | Emergency (ER) | payer BC ==
[~2017-08-04] VITALS: Ht 182.9 cm; Wt 121.9 kg
[~2017-08-04 19:54] MED LIST changes: -ATROPINE SULFATE 1% OPHT SOLN 5 ML BTL ONE; -DEXAMETHASONE SOD PHOS 4 MG/ML VIAL ONE; -DEXTROSE 50% IN WATER 50 ML SYRINGE ONE; -EPINEPHrine HCL (1:1000) 1 MG/ML VIAL ONE; -HYALURONIDASE/LIDOCAINE/BUPIVACAINE 5 ML SYR ONE; -LACTATED RINGER'S 1000 ML INJ 1,000 ML ONE; -MIDAZOLAM HCL 2 MG/2 ML VIAL ONE; -NEOMYCIN/POLYMYXIN/DEXAMETHASONE OPTH OINT 3.5 GM TUBE ONE; -ONDANSETRON HCL 4 MG/2 ML VIAL IV PUSH ONE; -PHENYLEPHRINE HCL 2.5 % OPTH SOLN 15 ML BTL ONE; -PROPOFOL 200 MG/20 ML AMP IV ONE; -SODIUM CHLORIDE 0.9% INJ 10 ML ONE; -TETRACAINE 0.5% OPTH SOLN 4 ML BTL ONE; -TROPICAMIDE 1% OPHT SOLN 15 ML BTL ONE; -ceFAZolin INJ 1,000 MG VIAL ONE
[2017-08-04 19:57] VITALS: BP 205/100; PULSE 72; RESP 20; TEMP 97.4; O2SAT 99
[2017-08-04] MEDS ORDERED: CLON0.2T PO (20:12)
[2017-08-04] MEDS ORDERED: LOSA50TA PO (20:12)
[2017-08-04] MEDS ORDERED: SODIUM CHLORIDE 0.9% FLUSH 10 ML FLUSH IVF PRN (20:30)
--- NOTE | 2017-08-04 20:52 | PD ---
HPI Chief Complaint: Edema Time Seen by Provider: 20:18 Travel History International Travel<30 days: No Contact w/Intl Traveler<30days: No Traveled to known affect area: No History of Present Illness HPI Patient is a 41-year-old male with history of stage V kidney disease, diabetes currently on insulin, CHF, seizure disorder, hypertension, presents the emergency room with complaints of lower extremity edema with shortness of breath. Patient reports that he has noticed increased swelling to his lower extremities for the past week, he did contact his durable medical equipment repairer to instruct him to double his dose of Lasix. Patient reports that he has been taking his double dose of Lasix but has been having some shortness of breath on exertion. Patient is afraid that he may be having pulmonary edema. Patient denies any chest pain, denies any cough or congestion. Patient denies any fever or chills. Patient denies any recent travels or trips, denies history of PE or DVT. PFSH Past Medical History Anemia: Yes Arthritis: No Asthma: No Autoimmune Disease: No Blood Disorders: No Anxiety: Yes Depression: Yes Heart Rhythm Problems: No Cancer: No Cardiac Catheterization: No Cardiovascular Problems: Yes High Cholesterol: No Chemotherapy: No Chest Pain: Yes Congestive Heart Failure: No Diabetes: Yes Patient Takes Glucophage: No Diminished Hearing: No Endocrine: Yes GERD: Yes Genitourinary: No Headaches: Yes Hiatal Hernia: No Hypertension: Yes Immune Disorder: No Implanted Vascular Access Dvce: No Kidney Stones: No Musculoskeletal: No Neurologic: Yes (neuropathy) Psychiatric: No Reproductive: No Respiratory: No Immunizations Current: Yes Myocardial Infarction: No Pancreatitis: Yes Radiation Therapy: No Renal Failure: Yes Seizures: Yes (QUESTIONABLE ) Sickle Cell Disease: No Sleep Apnea: No Thyroid Disease: Yes Ulcer: Yes Tetanus Vaccination: < 5 Years Influenza Vaccination: No Past Surgical History Abdominal Surgery: No AICD: No Appendectomy: Yes (2004) Arteriovenous Shunt: No Cardiac Surgery: No Coronary Artery Bypass Graft: No Ear Surgery: No Endocrine Surgery: No Eye Surgery: Yes ( 2011 at [facility] right eye) Genitourinary Surgery: No Gynecologic Surgery: No Insulin Pump: No Joint Replacement: No Neurologic Surgery: No Oral Surgery: No Pacemaker: No Thoracic Surgery: No Tonsillectomy: Yes Other Surgery: Yes (TOSILECTOMY 1997) Social History Alcohol Use: No Tobacco Use: No (QUIT 2014-1 pack a week cigs) Substance Use: No Allergies-Medications (Allergen,Severity, Reaction): Coded Allergies: No Known Allergies (Verified Adverse Reaction, Unknown, 08/04/17) Reported Meds & Prescriptions Reported Meds & Active Scripts Active Reported Losartan (Losartan Potassium) 50 Mg Tab 50 Mg PO BID Clonidine (Clonidine HCl) 0.2 Mg Tab 0.2 Mg PO BID Hydralazine (Hydralazine HCl) 100 Mg Tab 50 Mg PO TID Take with meals Levetiracetam 500 Mg Tab 1,000 Mg PO BID Baclofen 10 Mg Tab 10 Mg PO TID PRN Alprazolam 0.5 Mg Tab 0.5 Mg PO Q8H PRN Furosemide 40 Mg Tab 40 Mg PO DAILY Furosemide 20 Mg Tab 20 Mg PO HS Pantoprazole (Pantoprazole Sodium) 40 Mg Tab 40 Mg PO DAILY Levemir Inj (Insulin Detemir) 1,000 unit/ 10 ML Vial 90 Units SQ HS Do not mix with any other Insulin. Aspirin 81 (Aspirin) 81 Mg Tabdr 81 Mg PO DAILY Novolog Inj (Insulin Aspart) 100 Unit/Ml Inj 12 Units SQ HS Novolog Inj (Insulin Aspart) 100 Unit/Ml Inj 10 Units SQ DAILY AFTER MEALS Review of Systems General / Constitutional: No: Fever Eyes: No: Visual changes HENT: No: Headaches Cardiovascular: No: Chest Pain or Discomfort Respiratory: Positive: Shortness of Breath, No: Cough Gastrointestinal: No: Nausea, Vomiting, Abdominal Pain Genitourinary: No: Dysuria Musculoskeletal: Positive: Edema, No: Pain Skin: No Rash Neurologic: No: Weakness Psychiatric: No: Depression Endocrine: No: Polydipsia Hematologic/Lymphatic: No: Easy Bruising Physical Exam Narrative GENERAL: No acute distress, nontoxic SKIN: Focused skin assessment warm/dry. HEAD: Atraumatic. Normocephalic. EYES: Pupils equal and round. No scleral icterus. No injection or drainage. ENT: No nasal bleeding or discharge. Mucous membranes pink and moist. NECK: Trachea midline. No JVD. CARDIOVASCULAR: Regular rate and rhythm. No murmur appreciated. RESPIRATORY: No accessory muscle use. Clear to auscultation. Breath sounds equal bilaterally. GASTROINTESTINAL: Abdomen soft, non-tender, nondistended. Hepatic and splenic margins not palpable. MUSCULOSKELETAL: No obvious deformities. No clubbing. No cyanosis. +2 pitting edema bilaterally, negative Homans sign NEUROLOGICAL: Awake and alert. No obvious cranial nerve deficits. Motor grossly within normal limits. Normal speech. PSYCHIATRIC: Appropriate mood and affect; insight and judgment normal. Data Data Last Documented VS Vital Signs Date Time Temp Pulse Resp B/P (MAP) Pulse Ox O2 Delivery O2 Flow Rate FiO2 08/04/17 21:58 60 18 170/91 (117) 97 Room Air 08/04/17 19:57 97.4 Orders Orders Complete Blood Count With Diff (08/04/17 20:28) Comprehensive Metabolic Panel (08/04/17 20:28) B-Type Natriuretic Peptide (08/04/17 20:28) Magnesium (Mg) (08/04/17 20:28) Urinalysis - C+S If Indicated (08/04/17 20:28) Iv Access Insert/Monitor (08/04/17 20:28) Electrocardiogram (08/04/17 20:28) Ecg Monitoring (08/04/17 20:28) Oximetry (08/04/17 20:28) Sodium Chloride 0.9% Flush (Ns Flush) (08/04/17 20:30) Chest, Pa & Lat (08/04/17 21:05) Labs Laboratory Tests Test 08/04/17 20:36 08/04/17 21:34 White Blood Count 5.7 TH/MM3 Red Blood Count 3.58 MIL/MM3 Hemoglobin 10.0 GM/DL Hematocrit 30.7 % Mean Corpuscular Volume 85.7 FL Mean Corpuscular Hemoglobin 28.0 PG Mean Corpuscular Hemoglobin Concent 32.7 % Red Cell Distribution Width 12.1 % Platelet Count 160 TH/MM3 Mean Platelet Volume 10.3 FL Neutrophils (%) (Auto) 67.0 % Lymphocytes (%) (Auto) 19.5 % Monocytes (%) (Auto) 9.2 % Eosinophils (%) (Auto) 3.2 % Basophils (%) (Auto) 1.1 % Neutrophils # (Auto) 3.8 TH/MM3 Lymphocytes # (Auto) 1.1 TH/MM3 Monocytes # (Auto) 0.5 TH/MM3 Eosinophils # (Auto) 0.2 TH/MM3 Basophils # (Auto) 0.1 TH/MM3 CBC Comment DIFF FINAL Differential Comment Blood Urea Nitrogen 87 MG/DL Creatinine 6.00 MG/DL Random Glucose 171 MG/DL Total Protein 7.2 GM/DL Albumin 3.4 GM/DL Calcium Level 8.5 MG/DL Magnesium Level 2.6 MG/DL Alkaline Phosphatase 54 U/L Aspartate Amino Transf (AST/SGOT) 16 U/L Alanine Aminotransferase (ALT/SGPT) 26 U/L Total Bilirubin 0.3 MG/DL Sodium Level 140 MEQ/L Potassium Level 4.0 MEQ/L Chloride Level 111 MEQ/L Carbon Dioxide Level 20.9 MEQ/L Anion Gap 8 MEQ/L Estimat Glomerular Filtration Rate 10 ML/MIN B-Type Natriuretic Peptide 51 PG/ML Urine Color YELLOW Urine Turbidity CLEAR Urine pH 5.5 Urine Specific [place] 1.020 Urine Protein 100 mg/dL Urine Glucose (UA) 100 mg/dL Urine Ketones NEG mg/dL Urine Occult Blood TRACE Urine Nitrite NEG Urine Bilirubin NEG Urine Urobilinogen 0.2 MG/DL Urine Leukocyte Esterase NEG Urine RBC 0-3 /hpf Urine WBC 0-2 /hpf Urine Squamous Epithelial Cells 0-5 /hpf Microscopic Urinalysis Comment CULT NOT INDICATED MDM Medical Decision Making Medical Screen Exam Complete: Yes Emergency Medical Condition: Yes Medical Record Reviewed: Yes Interpretation(s) EKG at 2044: NSR at 63bpm, qt/qtc: 408/416, no acute st or t wave changes, normal axis Vital Signs Date Time Temp Pulse Resp B/P (MAP) Pulse Ox O2 Delivery O2 Flow Rate FiO2 08/04/17 19:57 97.4 72 20 205/100 (135) 99 Differential Diagnosis CHF exacerbation, renal failure, uremia, electrolyte abnormality, pneumonia, PE or DVT Narrative Course 41-year-old male who presents the emergency room for evaluation of possible CHF exacerbation. During the course of the patients emergency department visit, the patients history, examination, and differential diagnosis were reviewed with the patient. The patient was placed on a cardiac sonographer with oximetry and frequent blood pressure monitoring. The patient had an IV access obtained and blood work sent for analysis. The patients laboratory studies were reviewed and remarkable for CBC & BMP Diagram 08/04/17 20:36 Total Protein 7.2, Albumin 3.4, Calcium Level 8.5, Magnesium Level 2.6 H, Alkaline Phosphatase 54, Aspartate Amino Transf (AST/SGOT) 16, Alanine Aminotransferase (ALT/SGPT) 26, Total Bilirubin 0.3 Patient's cr 6.0 - patient reports that this is his baseline cr, he does have an appointment with a surgeon this week for creation of an AV fistula Radiology studies were reviewed and remarkable for Last Impressions Chest X-Ray 08/04/172104 Signed Impressions: Service Date/Time: Sunday, August 04, 2017 21:08 - CONCLUSION: No acute disease. Norman Pierce MD Patient reevaluated, and reviewed all labs and all studies with patient in detail, patient's creatinine is at baseline. Patient appears to have dependent edema to his lower extremities, there is no evidence of DVT or PE. Patient will follow up with his primary care doctor as well as durable medical equipment repairer and surgeon , he will return to the emergency room as needed. Patient is happy with plan of care. Vital Signs Date Time Temp Pulse Resp B/P (MAP) Pulse Ox O2 Delivery O2 Flow Rate FiO2 08/04/17 21:58 60 18 170/91 (117) 97 Room Air 08/04/17 21:58 Room Air 08/04/17 19:57 97.4 72 20 205/100 (135) 99 Patient's blood pressure at discharge is 170/90. Diagnosis Primary Impression: Lower extremity edema Additional Impression: Renal failure Qualified Codes: N18.5 - Chronic kidney disease, stage 5 Patient Instructions: General Instructions Additional Instructions: Please provide patient with a copy of their lab work and studies at discharge* * Please follow up with your primary care doctor in 2-3 days Return to the ER if symptoms worsen or progress Return to the ER as needed Disposition: 01 DISCHARGE HOME Condition: Stable Jennifer Bullock DO Aug 04, 2017 20:52
[2017-08-04 20:53] LABS: AUTOMATED NEUTROPHIL # 3.8 TH/MM3 (1.8-7.7); BASOPHIL # 0.1 TH/MM3 (0-0.2); BASOPHIL % 1.1 % (0.0-2.0); EOSINOPHIL # 0.2 TH/MM3 (0-0.4); EOSINOPHIL % 3.2 % (0.0-4.0); HEMATOCRIT 30.7 % (39.0-51.0); LYMPH % 19.5 % (9.0-44.0); LYMPHOCYTE # 1.1 TH/MM3 (1.0-4.8); MEAN CELL VOLUME 85.7 FL (80.0-100.0); MEAN CORPUSCULAR HGB CONC 32.7 % (32.0-36.0); MEAN PLATELET VOLUME 10.3 FL (7.0-11.0); MONO % 9.2 % (0.0-8.0); MONOCYTE # 0.5 TH/MM3 (0-0.9); PLATELET COUNT 160 TH/MM3 (150-450); RED BLOOD COUNT 3.58 MIL/MM3 (4.50-5.90); RED CELL DISTRIBUTION WIDTH 12.1 % (11.6-17.2); WHITE BLOOD COUNT 5.7 TH/MM3 (4.0-11.0)
[2017-08-04 21:08] LABS: CHLORIDE 111 MEQ/L (98-107); SODIUM (NA) 140 MEQ/L (136-145)
[2017-08-04 21:11] LABS: CALCIUM 8.5 MG/DL (8.5-10.1)
[2017-08-04 21:12] LABS: ALBUMIN 3.4 GM/DL (3.4-5.0); BICARBONATE 20.9 MEQ/L (21.0-32.0); BLOOD UREA NITROGEN 87 MG/DL (7-18); GLUCOSE,RANDOM 171 MG/DL (74-106); MAGNESIUM 2.6 MG/DL (1.5-2.5)
[2017-08-04 21:15] LABS: ALT (GPT) 26 U/L (12-78); AST (GOT) 16 U/L (15-37); GLOMERULAR FILTRATION RATE 10 ML/MIN (>89)
[2017-08-04 21:16] LABS: TOTAL BILIRUBIN ADULT 0.3 MG/DL (0.2-1.0); TOTAL PROTEIN 7.2 GM/DL (6.4-8.2)
[2017-08-04 21:17] LABS: ALKALINE PHOSPHATASE 54 U/L (45-117)
--- NOTE | 2017-08-04 21:40 | RADRPT ---
EXAM DATE/TIME: 08/04/2017 21:08 [facility] COMPARISON: CHEST PA & LAT, August 10, 2014, 9:33. INDICATIONS : Short of breath MEDICAL HISTORY : Hypertension. Diabetes mellitus type II. Gastroperesis. Neuropathy. SURGICAL HISTORY : None. ENCOUNTER: Initial ACUITY: 2 days PAIN SCORE: 5/10 LOCATION: Bilateral chest FINDINGS: PA and lateral views of the chest demonstrate the lungs to be symmetrically aerated without evidence of mass, infiltrate or effusion. The cardiomediastinal contours are unremarkable. Osseous structure s are intact. CONCLUSION: No acute disease. Norman Pierce MD on August 04, 2017 at 21:37 Board Certified Radiologist. This report was verified electronically.
[2017-08-04 21:42] LABS: BILIRUBIN, URINE NEG (NEG); BLOOD, URINE TRACE (NEG); GLUCOSE,URINE 100 mg/dL (NEG); KETONE, URINE NEG (NEG); NITRITE,URINE NEG (NEG); PH, URINE 5.5 (5.0-8.5); URINE COLOR YELLOW (YELLW/STRAW); URINE LEUKOCYTE ESTERASE NEG (NEG)
[2017-08-04 21:58] VITALS: BP 170/91; PULSE 60; RESP 18; O2SAT 97
[2017-08-04 22:02] LABS: RBC, URINE 0-3 /hpf (0-3); SQUAMOUS EPITHELIAL CELL URINE 0-5 /hpf (0-5); WBC, URINE 0-2 /hpf (0-5)
--- NOTE | 2017-08-04 23:59 | EKG ---
Date Performed: 08/04/2017 Time Performed: 20:45:12 PTAGE: 41 years EKG: Sinus rhythm NORMAL ECG PREVIOUS TRACING : 10/02/2016 07.35 Since the previous tracing, no significant change noted DOCTOR: Lucio Montenegro Interpretating Date/Time 08/04/2017 23:58:47
== END 2017-08-04 22:26 | disposition home or self-care (01) ==
LOC: PHED 19:54
DX: R60.0 Localized edema (principal); I13.2 Hypertensive heart and chronic kidney disease with heart failure and with stage 5 chronic kidney disease, or end stage renal disease; E11.22 Type 2 diabetes mellitus with diabetic chronic kidney disease; N18.5 Chronic kidney disease, stage 5; I50.9 Heart failure, unspecified; F41.9 Anxiety disorder, unspecified; F32.9 Major depressive disorder, single episode, unspecified; E07.9 Disorder of thyroid, unspecified; Z87.891 Personal history of nicotine dependence
CPT/HCPCS: 71046; 80053; 81001; 83735; 83880; 85025; 93005; 99285